=== PATIENT | male | born 1945 | race Caucasian/White ===

== ENCOUNTER 2022-10-06 15:38 | Outpatient (CLI) | payer MEDICARE, SELFPAY | END 2022-10-06 15:39 | disposition home or self-care (01) | PROVIDERS: PCP Family Medicine; Visit Provider Family Medicine | DX: Z00.00 Encounter for general adult medical examination without abnormal findings (principal); I10 Essential (primary) hypertension; E78.2 Mixed hyperlipidemia; Z12.5 Encounter for screening for malignant neoplasm of prostate | CPT/HCPCS: 80048; 80061; 84153; 84460 ==

== ENCOUNTER 2023-09-21 15:13 | Outpatient (CLI) | payer MEDICARE, SELFPAY | END 2023-09-21 15:14 | disposition home or self-care (01) | PROVIDERS: PCP Family Medicine; Visit Provider Family Medicine | DX: E78.2 Mixed hyperlipidemia (principal); E55.9 Vitamin D deficiency, unspecified; R53.83 Other fatigue; I10 Essential (primary) hypertension | CPT/HCPCS: 80048; 80061; 82306; 84443; 84460 ==

== ENCOUNTER 2024-06-05 11:15 | Outpatient (RCR) | payer MEDICARE, SELFPAY ==
--- NOTE | 2024-04-03 11:40 | PT.OPEX ---
PT [place] [facility] Eval Start: 04/03/24 09:55 Freq: Status: Active Protocol: Document 04/03/24 10:07 [facility] (Rec: 04/03/24 11:35 [facility] [id number]) E-signed By Royal Posada, PT Physical Therapy Outpatient Evaluation Insurance Information Recert Due Date 06/26/24 Insurance Name Medicare B,[employer] [facility] Medical Diagnosis Chronic right shoulder pain M25.511 Treating Diagnosis Right shoulder pain M25.511 Stiffness of shoulders M25.61 Muscle weakness M62.81 Imaging Report Information x-ray 02/28/24: moderately severe DJD right GH joint Referring MD Dr. Orlin Pickens Subjective Preferred Name Vasyl Subjective Pt presents with right shoulder pain that he started to notice after moving to [place] from [place] ~4 months ago, moving/emptying boxes. PLOF: playing organ and performing daily routine pain free right shoulder. Left shoulder hurts only a little. Pt is right-handed. 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 Precautions Treatment Precautions/Contraindications mild dementia Therapy Limitations/Systems Review Cognition Objective Other/Pertinent Objective R shoulder ROM: Active/ Passive Flexion: 70 / 145 deg ABD: 65 / 155 deg IR: reach to sacrum / 75 deg ER: reach to T1 / 60 deg L shoulder ROM: Active/ Passive Flexion: 85 deg/ 150 deg ABD: 65 deg / 160 deg IR: reach to sacrum / 65 deg ER: reach to T1 / 55 deg Cervical AROM: Flexion: chin to chest Ext: 40 deg Sidebend: L: 25 deg R: 23 deg , mild neck pain Cervical strength: grossly WNL per MMT UE strength: Right / Left Shldr flex: 4+ / 5 Shldr ext: 5 / 5 Shldr ABD: 4- / 4 Shldr ER: 3+ / 4- Shldr IR: 4 / 4 Elbow flex: 4+/ 4+ Elbow ext: 4+ / 4+ R GH joint mobility: WNL, non- painful Functional Test Performed & Score Quick DASH: 21.7 (MCID is 14) Assessment Assessment/Impression 79 year old male presents with right shoulder pain and impaired mobility that worsened after their move from [place] to [place] a few months ago, unloading boxes, etc. Vasyl had a recent x-ray of his right shoulder that showed moderately severe DJD of GH joint. Evaluation findings today include impaired AROM of bilateral shoulders w/ audible joint crepitus, impaired strength bilaterally and he demonstrates compensatory movement patterns (u trap overuse) when attempting flexion & abduction. Vasyl's right shoulder is slightly more impaired than left shoulder. Most noticeable is impaired shoulder ER and abduction strength R shoulder, suggesting a possible (old?) RTC tear. I recommend continued skilled PT for progression in a HEP to facilitate AROM and strength of bilateral shoulders to optimize his UE motor function . Primary Functional Limitations reach above shoulder height, wash back, don/doff coat Plan of Care Rehabilitation Potential Good Physical Therapy Goals In 6-10 weeks, patient will: 1) Improve sabino shoulder AROM by 20-30 deg, to allow him to reach comfortably into overhead cabinet or organ music stand to turn pages 2) Be able to don/doff coat I, with mild difficulty at most 3) Be able to wash back I, with mild difficulty at most 4) Improve QuickDASH by 14 points (MCID) Coordination/Communication With Referral Source Treatment Plan/Direct Interventions Joint Mobilization,Manual Therapy,Neuromuscular Re-ed, Self-Care/Home Management, Therapeutic Activities, Therapeutic Exercises Direct Interventions Clarification progressive HEP for shoulder Comments ROM & strength Frequency/Duration ~1x/week for 6-8 visits Patient Will Be Discharged From Therapy Independent w/HEP, Independently Progressing Evaluation Billing Untimed Code Treatment Minutes 25 Complexity Moderate Certification Information Initial Certification Date 04/03/24 Ending Certification Date 06/26/24 Provider Signature Required Yes Provider Signature Shows Agreement With POC & Medical Necessity Physician NPI Number Write NPI# Here Physician Comment/Change : Physician Signature & Date Requested Please Sign/Date Here
== END 2024-06-06 08:09 | disposition home or self-care (01) ==
PROVIDERS: PCP Family Medicine; Visit Provider Family Medicine
DX: M25.511 Pain in right shoulder (principal); G89.29 Other chronic pain; M25.619 Stiffness of unspecified shoulder, not elsewhere classified; M62.81 Muscle weakness (generalized); Z51.89 Encounter for other specified aftercare
CPT/HCPCS: 97110; 97112; 97162

== ENCOUNTER 2024-11-03 07:20 | Day surgery (SDC) | payer MEDICARE, SELFPAY ==
[2024-11-03] VITALS (7 sets, daily range): BP systolic 110–132; BP diastolic 67–90; PULSE 62–76; RESP 16; TEMP 36.8–36.9; O2SAT 95–99; BMI 29.4
[2024-11-03] MEDS: BUPIVACAINE 0.5% 30 ML INJECTION (07:25)
[2024-11-03] MEDS: LIDOCAINE 1%-EPI 1:100,000 20 ML INFILTRATI (07:25)
[2024-11-03] MEDS: ETHYL CHLORIDE 1 APPLICATION 1 APPLIC TOPICAL (07:48)
--- NOTE | 2024-11-03 07:49 | SUR.PREOP ---
SAME DAY SURGERY LOCAL INJECTION SITE VERIFICATION WAS PERFORMED BY SURGEON/PA AND PATIENT PRIOR TO LOCAL ANESTHETIC BEING INJECTED TO OPERATIVE SITE.
--- NOTE | 2024-11-03 08:29 | PM.ORPRC ---
Procedure Note Date of procedure: 11/03/24 Procedure: PREOPERATIVE DIAGNOSIS: 1. Right carpal tunnel syndrome POSTOPERATIVE DIAGNOSIS: 1. Right carpal tunnel syndrome PROCEDURE: 1. Right open carpal tunnel release SURGEON: Bartolo Santos MD. BULK [employer]OLERS INSTALLER: PEPE Sosa ANESTHESIA: Local anesthetic (50:50 mixture of 1% lidocaine with epi and 0.5% marcaine plain) - 10ml total IMPLANTS: None EBL: 2 mL TOURNIQUET: None COMPLICATIONS: None evident INDICATIONS: The patient is a pleasant 79 year old male who has experienced right hand numbess/tingling affecting the radial 3.5 digits for multiple months. It has progressively gotten worse. Nonoperative management has been tried and failed, and therefore surgery was recommended. DESCRIPTION OF PROCEDURE: Following a thorough discussion of risks, benefits, and alternatives consent was obtained and the operative extremity was marked. The patient was brought to the operating room and placed supine on the operating table. Local anesthesia induction was undertaken in preop holding. No antibiotics were administered as this was planned to be a local case only. Proper time-out was performed identifying proper patient, site, and procedure. The operative extremity was prepped and draped in the appropriate sterile fashion using ChloraPrep. An incision was made in line with the radial border of the ring finger beginning 1 cm distal to the distal wrist crease and progressing for another 2.5cm distal. Caution was taken to stay proximal to Land's cardinal line. Sharp incision through the skin, subcutaneous tissue, and palmar fascia was performed. The thenar musculature was bluntly elevated off the transverse carpal ligament. The ligament was directly visualized, and divided sharply with a 15 blade. This was released from its most proximal to the most distal extent. Metzenbaum scissor was also utilized to release the fascia extension proximally. We confirmed complete release of the transverse carpal ligament. Closure was performed with 4-O nylon in interrupted fashion. Soft dressings were applied, and the patient was transferred to the recovery room in stable condition. PLAN: 1. Encourage elevation of the operative extremity. 2. Range of motion of the fingers and hand/wrist as tolerated. 3. Ibuprofen/acetaminophen as needed for pain control. 4. Follow up with PA visit or nurse visit in 12-16 days for wound check and suture removal.
== END 2024-11-03 08:40 | disposition home or self-care (01) ==
LOC: OR 07:21
PROVIDERS: PCP Family Medicine; Visit Provider Orthopaedic Surgery Sports Medicine
PROC: (CPT 64721; principal; 2024-11-03 08:15)
DX: G56.01 Carpal tunnel syndrome, right upper limb (principal)
CPT/HCPCS: 64721; J0665

== ENCOUNTER 2025-01-21 12:06 | Outpatient (CLI) | payer MEDICARE, SELFPAY | END 2025-01-21 12:07 | disposition home or self-care (01) | PROVIDERS: PCP Family Medicine; Visit Provider Family Medicine | DX: E78.2 Mixed hyperlipidemia (principal) | CPT/HCPCS: 80048; 80061; 84460 ==